=== PATIENT | male | born 1980 | race African-American/Black ===

== ENCOUNTER 2016-09-07 08:00 | Inpatient (IN) | payer OTHER ==
--- NOTE | ~2016-09-07 | PN ---
Unit #: [id number] #: [id number] Patient: JAZMIN LOCK [id number] [facility] [address] [place] [address] [id number] MR#: [id number] NAME: JAZMIN LOCK ROOM: [facility] Age: 36 Sex: M Admission Date: 09/07/2016 : 1980 Attending Physician: Mainor Mccormack M.D. Admitting Physician: Mainor Mccormack M.D. Primary Care Physician: Generic Doctor Not In System [facility] PROGRESS NOTES DATE 09/09/2016 DISCUSSION The patient is active within the therapeutic milieu. He is interested in residential chemical dependence treatment following his discharge from the hospital and I will ask a social studies department chair to see him regarding this. His mood is a bit brighter today and he is reporting some improvement in his feelings of hopeless and reduction in suicidal thinking. Dictated by... Mainor Mccormack M.D. CB/brayan TD: 09/10/2016 02:02 JOB #: [id number] LOCATED WITHIN [facility] PROGRESS NOTES Page 1 of 1 X Mainor Mccormack MD X PROGRESS NOTE
--- NOTE | ~2016-09-07 | PN ---
Unit #: [id number] #: [id number] Patient: JAZMIN LOCK [id number] [facility] [address] [place] [address] [id number] MR#: [id number] NAME: JAZMIN LOCK ROOM: [facility] Age: 36 Sex: M Admission Date: 09/07/2016 : 1980 Attending Physician: Mainor Mccormack M.D. Admitting Physician: Mainor Mccormack M.D. Primary Care Physician: Generic Doctor Not In System [facility] PROGRESS NOTES DATE 09/10/2016 DISCUSSION The patient exhibits little in the way of signs or symptoms of withdrawal. He has made little progress with regard to disposition. I have spoken with him today frankly regarding realistic expectations of inpatient care. I have told the patient to expect a.m. discharge. The patient is understanding. I will ask the social services coordinator to see him in a timely fashion as possible to provide him with information regarding long-term houses and resources for the homeless. Dictated by... Mainor Mccormack M.D. CB/tommy TD: 09/10/2016 14:35 JOB #: [id number] [facility] PROGRESS NOTES Page 1 of 1 X Mainor Mccormack MD X PROGRESS NOTE
--- NOTE | ~2016-09-07 | HP ---
Unit #: [id number] #: [id number] Patient: JAZMIN LOCK [id number] [place] [address] [id number] MR#: [id number] NAME: JAZMIN LOCK ROOM: [facility] Age: 36 Sex: M Admission Date: 09/07/2016 : 1980 Attending Physician: Mainor Mccormack M.D. Admitting Physician: Mainor Mccormack M.D. Primary Care Physician: Generic Doctor Not In System HISTORY AND PHYSICAL HISTORY OF PRESENT ILLNESS The patient is a 36-year-old male who states he is here for alcohol detox and to detox from crack cocaine. PAST MEDICAL HISTORY Significant for asthma. PAST SURGICAL HISTORY None. ALLERGIES None. SOCIAL HISTORY Positive for smoking, alcohol and drugs. FAMILY HISTORY Noncontributory. REVIEW OF SYSTEMS CONSTITUTIONAL: No fever or chills. HEENT: Denies any sore throat, ear pain or runny nose. CARDIOVASCULAR: Denies chest pain, irregular heart rhythm or palpitations. CHEST: Denies shortness of breath or cough. No hemoptysis. GASTROINTESTINAL: Denies nausea, vomiting, diarrhea or chronic constipation. ENDOCRINE: Denies history of increased thirst or urination. No recent significant weight loss or gain. GENITOURINARY: Denies dysuria, frequency, or hematuria. SKIN: Denies any rashes. HEMATOLOGIC: Denies history of increased bleeding or bruising. MUSCULOSKELETAL: Denies any hot, swollen joints. No generalized muscle pain. NEUROLOGIC: Denies problems with vision or speech. No frequent, severe headaches. No numbness, tingling or weakness in any extremities. Denies loss of bladder or bowel control. CURRENT MEDICATIONS None. PHYSICAL EXAMINATION GENERAL: Alert, oriented, in no acute distress. VITAL SIGNS: Heart rate 95, blood pressure 132/95. Unit #: [id number] #: [id number] Patient: JAZMIN LOCK HEIGHT: 5 feet 4 inches. WEIGHT: 120 pounds. SKIN: Warm and dry without rash or lesion. HEENT: Normocephalic. TMs not viewed. Oral and nasal passages clear. Conjunctivae clear. PERRLA. EOMs intact. NECK: Supple without lymphadenopathy or thyromegaly. HEART: Regular rate and rhythm without murmur. LUNGS: Clear. ABDOMEN: Soft, nontender, without masses or hepatosplenomegaly. : Not done. EXTREMITIES: No evidence of cyanosis, clubbing or edema. Moves all without focal deficit. NEUROLOGICAL: Grossly within normal limits. Cranial Nerves: II: Visual caceres are intact. III, IV AND : Extraocular movements are intact. Pupils are equal, round and reactive to light. V: Facial sensation is grossly normal. VII: Facial movements and expression are normal. VIII: Auditory acuity grossly intact. IX, X: Uvula is midline. Phonation is normal. XI: Patient shrugs shoulders and turns head normally. XII: Tongue protrudes in the midline. Sensory and Motor Function: Sensory and motor sensation is grossly normal. Motor: moves all extremities well. Coordination: Gait is normal. Deep Tendon Reflexes: Intact. IMPRESSION Psychiatric admission. RECOMMENDATIONS PSYCHIATRIC: Per psychiatrist. MEDICAL: No contraindications to participate in facility's activities. MEDICAL PROGNOSIS Good. Dictated by... Howard Colon/doyle TD: 09/07/2016 20:59 JOB #: [id number] HISTORY AND PHYSICAL Page 1 of 1 X Clara Lala APR X HISTORY AND PHYSICAL
--- NOTE | ~2016-09-07 | PA ---
Unit #: [id number] #: [id number] Patient: JAZMIN LOCK [id number] [place] [address] [id number] I MR#: [id number] NAME: JAZMIN LOCK ROOM: [facility] Age: 36 Sex: M Admission Date: 09/07/2016 : 1980 Date of Assessment: 09/08/2016 Attending Physician: Mainor Mccormack M.D. Admitting Physician: Mainor Mccormack M.D. Primary Care Physician: Generic Doctor Not In System PSYCHIATRIC ASSESSMENT IDENTIFYING INFORMATION The patient is a 36-year-old male, admitted to the [address] [place] [address] with history of increasing abuse of cocaine and alcohol as well as depression and suicidal ideation. INFORMANT(S) Patient, patient reliability is good. CHIEF COMPLAINT None given. HISTORY OF PRESENT ILLNESS The patient is a 36-year-old male, who is a [place] of [place]. He has been in the [facility] for about fifteen years. The patient reports that he has been using crack cocaine and alcohol. He reports that he had attempted to hang himself yesterday and is very depressed at his current life situation. The patient is currently homeless and has probably lost his job because of his abuse of cocaine and alcohol. The patient reports no previous chemical dependence or other psychiatric treatment. He denies recent changes in sleep or appetite. He states that he is estranged from his family in [place] and has little support in the area. PAST PSYCHIATRIC HISTORY None. PAST MEDICAL HISTORY The patient has asthma. MEDICATIONS Albuterol ALLERGIES None. FAMILY HISTORY Noncontributory. SOCIAL HISTORY The patient is currently homeless and is living with a friend. 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 He denies any history of intravenous drug use and is not a smoker. Unit #: [id number] #: [id number] Patient: JAZMIN LOCK MENTAL STATUS EXAM At this time reveals the patient to be a well-developed, well-nourished male, appearing his stated age. He has no apparent physical distress at the time of the examination. He is awake, alert, and oriented in all spheres. His mood is dysphoric. His affect blunted. Speech is generally relevant and coherent although the patient's Armenian is heavily accented and less than optimal. There are no gross deficits to memory or cognition noted. Intelligence is judged to be in the average range based on fund of knowledge. The patient is cooperative throughout the interview. He is currently reporting positive suicidal ideation. He denies homicidal ideation. He denies any psychotic symptoms. His judgment and insight appear to be reasonably intact. ASSETS Motivation for change. LIABILITIES Lack of resources. DIAGNOSTIC IMPRESSION [place] I: Dysthymic disorder. Cocaine use disorder. Alcohol use disorder. [place] II: [place] III: Asthma. TREATMENT PLAN The patient remains hospitalized for safety and stabilization, and routine detoxification protocol has been initiated. At this point we will not initiate any antidepressant medication but will watch for improvement in mood with cessation of cocaine use. I will ask the patient to discuss possible postdischarge treatment planning with his hospital social worker. ESTIMATED LENGTH OF STAY [id number] days. Dictated by... Mainor Mccormack M.D. RAMANDEEP/florinda TD: 09/09/2016 13:13 JOB #: [id number] Unit #: [id number] #: [id number] Patient: JAZMIN LOCK PSYCHIATRIC ASSESSMENT Page 1 of 1 X Mainor Mccormack MD X PSYCHIATRIC ASSESSMENT
--- NOTE | ~2016-09-07 | DS ---
Unit #: [id number] #: [id number] Patient: JAZMIN LOCK [id number] [facility] [address] [place] [address] [id number] MR#: [id number] NAME: JAZMIN LOCK ROOM: [facility] Age: 36 Sex: M Admission Date: 09/07/2016 : 1980 Discharge Date: 09/11/2016 Attending Physician: Mainor Mccormack M.D. Primary Care Physician: Generic Doctor Not In System DISCHARGE SUMMARY REASON FOR ADMISSION The patient is a 36-year-old male, admitted to the [address] [place] [address] unit with increasing abuse of alcohol and cocaine. HOSPITAL COURSE The patient was admitted to the [address] [place] [address] unit and placed on routine detoxification protocol for alcohol. His stay in the hospital was a brief and uneventful one. The patient's detox went smoothly. He did not, however, accomplish much in the way of making arrangements for post discharge treatment. By 09/11/2016, the patient's detox was complete, but he stated that he still had not made arrangements for post discharge disposition. His expectations of inpatient care were at that time redirected with him. He denied suicidal ideation, and discharge was ordered. FINAL DIAGNOSES Alcohol use disorder, cocaine use disorder, and asthma. DISPOSITION ON DISCHARGE The patient is discharged on the following medications; Proventil HFA 2 puffs q.4 hours p.r.n. shortness of air. DISCHARGE INSTRUCTIONS No dietary or physical restrictions were placed upon the patient at the time of discharge. FOLLOWUP Followup will take place through the auspices of community mental health resources. PROGNOSIS The patient's prognosis is considered fair. Dictated by... Mainor Mccormack M.D. CB/carmen TD: 09/11/2016 13:07 JOB #: [id number] Unit #: [id number] #: [id number] Patient: JAZMIN LOCK DISCHARGE SUMMARY Page 1 of 1 X Mainor Mccormack MD X DISCHARGE SUMMARY
[~2016-09-07 08:00] MED LIST: IBUPROFEN600 MG PO; PAIN RELIEVER325 M1 PO
[2016-09-08 11:28] LABS: BASOPHIL# 0.1 X10e3 (0-0.3); BASOPHIL% 1.5 % (0-2.5); EOSINOPHIL# 0.3 X10e3 (0-0.7); EOSINOPHIL% 7.7 % (0.0-7.0); HEMATOCRIT 45.6 % (38.0-50.0); HEMOGLOBIN 14.5 gm/dL (13.0-16.0); LYMPHOCYTE# 1.7 X10e3 (1.0-3.5); LYMPHOCYTE% 47.6 % (17.0-45.0); MEAN CELL VOLUME 88.8 FL (83-96); MEAN CORPUSCULAR HEMOGLOBIN 28.2 PG (28-34); MEAN CORPUSCULAR HGB CONC 31.8 g/dL (30-36); MEAN PLATELET VOLUME 8.6 FL (6.5-11.5); MONOCYTE# 0.3 X10e3 (0-1.0); MONOCYTE% 7.7 % (3.0-12.0); NEUTROPHIL# 1.3 X10e3 (1.5-7.1); NEUTROPHIL% 35.5 % (40-75); PLATELET COUNT 230 X10e3 (140-420); RED BLOOD COUNT 5.14 X10e (3.90-5.60); RED CELL DISTRIBUTION WIDTH 15.5 % (11.0-15.5); WHITE BLOOD COUNT 3.6 X10e3 (4.0-10.5)
[2016-09-08 11:31] LABS: DIFF IND NO
[2016-09-08 11:50] LABS: ALBUMIN SERUM 4.4 g/dL (3.5-5.0); BILIRUBIN,TOTAL 0.9 mg/dL (0.2-2.0); BUN/CREATININE RATIO 11.81; CREATININE SERUM 1.1 mg/dL (0.6-1.4); GLOM FILT RATE Estimated 99.6 mL/min (>60); POTASSIUM 4.7 mmol/L (3.5-5.1); PROTEIN TOTAL SERUM 7.5 g/dL (6.0-8.3)
[2016-09-09 10:16] LABS: URINE APPEARANCE CLEAR; URINE BILIRUBIN NEG (NEG); URINE BLOOD NEG (NEG); URINE COLOR DK YELLOW; URINE GLUCOSE NEG (NEG); URINE KETONE NEG (NEG); URINE LEUKOCYTE ESTERASE NEG (NEG); URINE NITRATE NEG (NEG); URINE PH 6.5 (5-8); URINE PROTEIN NEG (NEG); URINE SPECIFIC GRAVITY 1.021 (1.003-1.035); URINE UROBILINOGEN 0.2 MG/DL (NEG)
[2016-09-09 11:29] LABS: AMPHETAMINE NEG (NEG); BARBITURATES NEG (NEG); BENZODIAZEPINES POS (NEG); COCAINE POS (NEG); MARIJUANA NEG (NEG); OPIATES NEG (NEG); TRICYCLIC ANTIDEPRESSANTS NEG (NEG); U METHADONE NEG (NEG)
== END 2016-09-11 15:55 | DRG 897 ==
LOC: P2S 11:03
PROVIDERS: Specialist
PROC: HZ2ZZZZ Detoxification Services for Substance Abuse Treatment (ICD-10-PCS; principal; 2016-09-07)
DX: F10.10 Alcohol abuse, uncomplicated (principal); F14.10 Cocaine abuse, uncomplicated; R45.851 Suicidal ideations; F34.1 Dysthymic disorder; J45.909 Unspecified asthma, uncomplicated; F17.210 Nicotine dependence, cigarettes, uncomplicated
CPT/HCPCS: 80053; 80307; 81003; 85025